=== PATIENT | female | born 1955 | race Caucasian/White ===

== ENCOUNTER 2022-12-25 00:31 | Emergency (ER) | payer OTHER ==
[2022-12-25 00:41] VITALS: BP 125/82; PULSE 75; RESP 18; TEMP 97.6; BMI 32.5
[2022-12-25] MEDS ORDERED: CEFUROXIME AXETIL 500 MG TABLET ONE (01:01)
[2022-12-25] MEDS ORDERED: DIPHTH,PERTUSS(ACELL),TET 0.5 ML DISP.SYRIN IM ONE ×2 (01:50→01:51)
== END 2022-12-25 02:02 | disposition home or self-care (01) ==
LOC: FER 00:31
PROC: 0HQFXZZ Repair Right Hand Skin, External Approach (ICD-10-PCS; principal; 2022-12-25)
PROC: 3E0234Z Introduction of Serum, Toxoid and Vaccine into Muscle, Percutaneous Approach (ICD-10-PCS; 2022-12-25)
DX: S61.451A Open bite of right hand, initial encounter (principal); S51.852A Open bite of left forearm, initial encounter; W54.0XXA Bitten by dog, initial encounter
CPT/HCPCS: 90715; 99283-25

== ENCOUNTER 2023-01-03 19:49 | Emergency (ER) | payer OTHER ==
[2023-01-03 20:14] VITALS: BP 133/71; PULSE 63; RESP 17; TEMP 98; BMI 31.4
== END 2023-01-03 20:35 | disposition home or self-care (01) ==
LOC: FER 19:49
DX: Z48.02 Encounter for removal of sutures (principal)
CPT/HCPCS: 99281-25